=== PATIENT | female | born 1960 | race Caucasian/White ===

== ENCOUNTER 2017-05-02 18:20 | Emergency (ER) | payer OTHER ==
[~2017-05-02] VITALS: Ht 171.4 cm; Wt 179.6 kg
[~2017-05-02 18:20] MED LIST: CARV3125 PO; CITA40TA PO; GLPZ5T1 PO; INSU100C4 SUBQ; SYN.1T2 PO; [UNRECOGNIZED DRUG - CODE] PO
[2017-05-02 18:37] VITALS: BP 161/88; PULSE 66; RESP 16; O2SAT 98
--- NOTE | 2017-05-02 19:25 | ED.REPORT ---
HPI-Trauma Minor / Fall Date of Service May 02, 2017 ED Provider: Deuce Barillas MD Patient is a 56 year old female with a history of diabetes with neuropathy and hypertension who presents to the ED due to a fall around 0630 this morning. Associated symptoms include right foot and left foot abrasions and multiple abrasions on her back. She denies hitting her head or losing consciousness. Patient has no other pain at this time. The patient states that she was in the shower, slipped and broke the glass door. She is worried that she may have glass embedded within her feet and body otherwise. Nursing Notes Stated Complaint: FELL THROUGH SHOWER DOOR, HAS GLASS IN LEFT FOOT Chief Complaint: General Complaint Nursing Notes Reviewed: Yes Allergies: Coded Allergies: TAPE (Verified Allergy, Mild, Rash,Itching,, 05/02/17) adhesive (Verified Allergy, Mild, Rash,Itching,, 05/02/17) No Known Allergies (Verified Allergy, Unknown, 05/02/17) Scheduled Amoxicillin-Pot Clav (Amox-Pot Clav 875) 1 Tab Tablet 1 TAB PO BID Carvedilol-Expunged Drug, Do Not Renew! (Carvedilol-Expunged Drug, Do Not Renew! ) 3.125 Mg Tablet 12.5 MG PO BIDWM Citalopram-Expunged Drug, Do Not Renew! (Citalopram-Expunged Drug, Do Not Renew! ) 40 Mg Tablet 40 MG PO DAILY Insulin Glargine-Expunged Drug, Do Not Renew! (Lantus-Expunged Drug, Do Not Renew!) 100 Unit/Ml Unit 20 UNIT SUBQ BID Levothyroxine-Expunged Drug, Do Not Renew! (Synthroid-Expunged Drug, Do Not Renew!) 100 Mcg Tablet 100 MCG PO DAILYAC glipiZIDE-Expunged Drug, Do Not Renew! (glipiZIDE-Expunged Drug, Do Not Renew!) 5 Mg Tablet 5 MG PO BIDAC General Time Seen by MD: 19:24 Chief Complaint Fall Hx Obtained From: Patient Arrived By: Walk-in Onset Occurred: 13 - 16 hours ago Symptom Duration: Since onset Caused by: Fall on ground Context: Occurred at: Home injury Location: Foot left Foot right Recent Healthcare: No recent doctor visit, No recent hospitalization Similar Sx Previous: No Past Medical History Past Medical History diabetes with neuropathy Smoking History Unknown if Ever Smoker Social History Other Social History: Good social support Ambulatory Status Independent Review of Systems Review of Systems Note: +multiple abrasions Constitutional: Denies: Chills, Fever Respiratory: Denies: Non-productive cough, Shortness of breath Skin: Denies Itching, Denies Rash Neurologic: Denies: Change LOC, Headache, Numbness, Problem walking, Weakness Complete sys rev & neg: except as marked. Physical Exam Careful head to toe skin examination reveals no suspicion of embedded glass. Initial Vital Signs Vital Signs (First) Date Time Temp Pulse Resp B/P Pulse Ox O2 Delivery O2 Flow Rate FiO2 05/02/17 18:37 36.6 66 16 161/88 98 Room Air Initial VS: Reviewed General/Constitutional: Awake, Alert, No acute distress Neck: Atraumatic, Supple Head / Eyes: Atraumatic, Normocephalic, PERRL, EOMI Respiratory / Chest: Atraumatic, No respiratory distress Upper Extremity / MS: Atraumatic, Full range of motion Lower Extremity / Pelvis / MS: Full range of motion, No deformity multiple abrasions to bilateral lower extremities Ankle / Foot: Full range of motion, No deformity multiple abrasions to bilateral feet Skin: Color NL, No rash, Warm, Dry Neurologic: Oriented X3, Speech NL, No motor deficits, No sensory deficits Psychiatric: Affect NL, Mood NL Procedures Laceration Management Time: 19:38 Procedure Performed by: ED physician Consent / Setup / Site Prep: Consent from patient, Time-out performed, Hand hygiene observed Location of Wound: multiple abrasions on both feet less than 1cm each removed shards of glass from site no sutures were needed Debridement: Yes Irrigation: Copious Foreign Body Explore / Removal: Explored for foreign body, Removed single Post-Procedure / Complications: Antibiotic oint applied, Dressing applied, No complications, Condition improved, Tolerated procedure well, Patient stable Re-Eval/Medical Decision Re-Evaluation/Progress : Time of Eval: 19:37 Re-Evaluation/Progress Note: Discussed plan for discharge and follow up. Patient understands and agrees to the plan. All questions were addressed. Counseled Regarding: Diagnosis, Need for follow-up, When/why to return to ED Discharge & Departure Impression: Primary Impression: Fall Encounter type: initial encounter Qualified Code: W19.XXXA - Unspecified fall, initial encounter Additional Impression: Foot abrasion Encounter type: initial encounter Laterality: right Qualified Code: S90.811A - Abrasion, right foot, initial encounter Disposition: Home Discharge Condition All VS Reviewed: Yes Condition: Stable Patient Instructions: Laceration (ED) Additional Instructions: I do not suspect that you have any embedded glass in any of the wounds that you sustained. However, it is possible that some glass within your skin has yet to be identified. I recommended follow-up with the clinic next week for recheck, sooner if you develop worsening symptoms. Referrals: Cedrick Robbins DO (PCP) [facility] Attestation Portions of this note were transcribed by Estefani Osorio. I, Dr. Barillas personally performed the history, physical exam and medical decision-making; I reviewed and confirmed the accuracy of the information in the transcribed note. Signed by: Tata Sal, 05/02/17 copies to: Cedrick Robbins Kirk H MD May 02, 2017 19:25 Isabelle Osorio May 02, 2017 19:39
[2017-05-02 20:11] VITALS: BP 158/82; PULSE 62; RESP 16; O2SAT 99
== END 2017-05-02 20:12 | disposition home or self-care (01) ==
LOC: SED 18:20
DX: S90.811A Abrasion, right foot, initial encounter (principal); W01.110A Fall on same level from slipping, tripping and stumbling with subsequent striking against sharp glass, initial encounter; Y93.E1 Activity, personal bathing and showering; Y92.002 Bathroom of unspecified non-institutional (private) residence as the place of occurrence of the external cause; Y99.8 Other external cause status; E11.40 Type 2 diabetes mellitus with diabetic neuropathy, unspecified; I10 Essential (primary) hypertension; Z79.4 Long term (current) use of insulin